=== PATIENT | male | born 1980 | race Caucasian/White ===

== ENCOUNTER 2020-05-08 08:54 | Emergency (ER) | payer BC, SELFPAY ==
--- NOTE | ~2020-05-08 | XR_ITS ---
EXAMINATION: XR chest 2V EXAM DATE: 05/08/2020 09:40 INDICATION: Sharp frontal chest pain. TECHNIQUE: Frontal and lateral projections of the chest obtained and reviewed. There is no prior heavenly dy for comparison. FINDINGS: The lungs are clear. There are no pleural effusions. The cardiomediastinal silhouette is within normal limits. There is no pneumothorax suspected. The bones and soft tissues are unremarkab le. IMPRESSION: Normal chest x-ray exam. Reviewed, dictated and finalized at location A. ESSIONAL MODEL IMPRESSION: Normal chest x-ray exam.
[2020-05-08 08:58] VITALS: BP 183/106; PULSE 106; RESP 18; TEMP 36.7; O2SAT 100
--- NOTE | 2020-05-08 09:02 | ECG_ITS ---
Measurements Intervals [place] Rate: 107 P: 69 [place]: 145 QRS: -2 QRSD: 102 T: 65 QT: 331 QTc: 443 Interpretive Statements SINUS TACHYCARDIA ABNORMAL ECG Electronically Signed On 05-08-2020 9:53:07 SUPERVISOR INTELLIGENCE ANALYST by Isaac Merritt D.O.
[2020-05-08 09:28] LABS: Basophils Absolute Auto 0.1 K/mm3 (0.0-0.1); Basophils Percent Auto 0.8 % (0.2-1.2); Eosinophils Absolute Auto 0.2 K/mm3 (0-0.3); Eosinophils Percent Auto 3.1 % (0-4.4); Hematocrit 39.7 % (42.0-52.0); Hemoglobin 13.8 g/dL (14.0-18.0); Immature Granulocyte Absolute 0.06 K/mm3 (0.00-0.031); Immature Granulocyte Percent A 0.8 % (0-0.5); Lymphocytes Absolute Auto 3.25 K/mm3 (0.9-3.2); Lymphocytes Percent Auto 43.1 % (18.3-44.2); Mean Corpuscular HGB Conc 34.8 g/dl (32-36); Mean Corpuscular Hemoglobin 32.6 pg (26-34); Mean Corpuscular Volume 93.9 fl (80-100); Mean Platelet Volume 9.7 fl (7.4-10.4); Monocytes Absolute Auto 0.7 K/mm3 (0.1-0.6); Monocytes Percent Auto 9.4 % (2.6-8.5); Neutrophils Absolute Auto 3.2 K/mm3 (1.3-6.7); Neutrophils Percent Auto 42.8 % (45.5-73.1); Platelet Count Result 311 k/mm3 (150-375); Red Blood Count 4.23 M/mm3 (4.6-6.20); Red Cell Distribution Width 12.7 % (11.5-14.5); White Blood Count 7.5 K/mm3 (4.5-10.0)
[2020-05-08 09:46] LABS: Prothrombin Time 13.5 Seconds (11.1-14.7)
[2020-05-08 09:47] LABS: Partial Thromboplastin Time 30.7 SECONDS (22.3-36.8)
[2020-05-08] MEDS: LIDOCAINE HCL 2% VISC SOLN 15 ML UDC 20 ML PO (09:50)
[2020-05-08] MEDS: PANTOPRAZOLE SODIUM IV 40 MG VIAL IV PUSH (09:51)
[2020-05-08] MEDS: MAG HYDROX/AL HYDROX/SIMETH 30 ML UDC PO (09:51)
[2020-05-08 10:03] LABS: Anion Gap 8 mmol/L (8-16); Blood Urea Nitrogen 17 mg/dL (9-20); Calcium 9.3 mg/dL (8.4-10.2); Carbon Dioxide 26 mmol/L (22-30); Chloride 105 mmol/L (98-107); Estimated CRCL calculation 105 ml/min; Estimated Glomerular Filt Rate > 60; Glucose 127 mg/dL (75-110); Potassium 4.1 mmol/L (3.4-5.0); Sodium 139 mmol/L (137-145)
[2020-05-08 10:07] LABS: Alanine Aminotransferase 29 U/L (4-50); Albumin Level 4.6 g/dL (3.5-5.1); Alkaline Phosphatase 80 U/L (38-126); Aspartate Amino Transferase 42 U/L (17-59); Bilirubin,Total 0.5 mg/dL (0.2-1.3); Lipase 91 U/L (23-300)
[2020-05-08 10:14] LABS: Troponin I < 0.012 ng/mL (0.000-0.034)
[2020-05-08 10:38] VITALS: BP 160/104; PULSE 91; RESP 15; TEMP 36.8; O2SAT 99
--- NOTE | 2020-05-08 10:54 | ED.CHESTPAIN ---
HPI - Chest Pain General Chief Complaint: Chest Pain Stated Complaint: CHEST PAIN Time Seen by Provider: 05/08/20 09:09 Source: patient Mode of arrival: ambulatory Limitations: no limitations History of Present Illness HPI narrative: Patient is a 39-year-old male who presents to emergency department for evaluation of midsternal chest pain that began at 8:00 this morning patient notes pressure of the chest did have 2 sharp stabbing pains to the right chest some mild left shoulder pain as well which was short-lived and has since had intermittent pressure in the mid chest patient notes that he did not take his omeprazole last night did eat pizza and this morning again had hashbrowns and Pepsi as a potential cause. Patient denies history of cardiac disease patient denies any other abdominal pain patient notes he did have a loose stool today as well. . Denies URI symptoms Related Data Home Medications Medication Instructions Recorded Confirmed omeprazole 40 mg PO DAILY 05/08/20 Allergies Allergy/AdvReac Type Severity Reaction Status Date / Time No Known Allergies Allergy Verified 05/08/20 09:01 Review of Systems Review of Systems: All systems reviewed & are unremarkable except as noted in HPI and below PMFSH Past Medical History Medical History (Updated 05/08/20 @ 12:28 by Naman Panchal PA-C) GERD (gastroesophageal reflux disease) Social History Social History (Updated 05/08/20 @ 10:56 by Naman Panchal PA-C) Smoking status: Never smoker Smokeless tobacco user: chewing tobacco Exam Narrative: Exam Narrative: GENERAL: Well-appearing, well-nourished, and in no acute distress. HEAD: Normocephalic, atraumatic. EYES: PERRLA and EOMI. ENT: Nares clear, no rhinorrhea or epistaxis. Mucous membranes moist. CHEST: Clear to auscultation. No respiratory distress. No wheezes rales or rhonchi HEART: Regular rate and rhythm. No murmur heard. ABDOMINAL: Nontender no rebound or guarding, soft EXTREMITIES: Normal range of motion. No edema. SKIN: Warm, dry, no rash. NEURO: No focal deficits. Alert and oriented x3. PSYCH: Normal mood and affect. Course Course Emergency Course: Patient in the room in no distress noted resolution of pain with GI cocktail and improvement with Protonix. Patient resting comfortably will continue to watch his blood pressures for trending. Vital Signs Vital signs: Vital Signs Temperature 98.1 F 05/08/20 08:58 Pulse Rate 106 H 05/08/20 08:58 Respiratory Rate 18 05/08/20 08:58 Blood Pressure 183/106 H 05/08/20 08:58 Pulse Oximetry 100 05/08/20 08:58 Temperature 98.2 F 05/08/20 10:38 Pulse Rate 91 05/08/20 10:38 Respiratory Rate 15 05/08/20 10:38 Blood Pressure 160/104 H 05/08/20 10:38 Pulse Oximetry 99 05/08/20 10:38 MDM - Chest Pain MDM Narrative Medical decision making narrative: Patients EKGs and labs are without significant high risk changes. Cardiac risk factors were reviewed. Patient is felt likely to be low risk for ACS and reasonable for further risk stratification testing as an outpatient. Pain was not sudden or maximal in onset without tearing or ripping. quality. No other signs or symptoms to suggest aortic dissection. A low-risk Wells criteria is noted. PE is felt to be unlikely. No pneumonia or URI symptoms were seen on evaluation today. Patient is felt to b reasonable for continued evaluation as an outpatient. Lab Data Result diagrams: 05/08/20 09:05 05/08/20 09:05 Labs: Lab Results 05/08/20 05/08/20 05/08/20 Range/Units 09:04 09:05 09:05 WBC 7.5 (4.5-10.0) K/mm3 RBC 4.23 L (4.6-6.20) M/mm3 Hgb 13.8 L (14.0-18.0) g/dL Hct 39.7 L (42.0-52.0) % MCV 93.9 (80-100) fl MCH 32.6 (26-34) pg MCHC 34.8 (32-36) g/dl RDW 12.7 (11.5-14.5) % Plt Count 311 (150-375) k/mm3 MPV 9.7 (7.4-10.4) fl Immature Gran % (Auto) 0.8 H (0-0.5) % Neut % (Auto) 42.8
[2020-05-08 12:20] LABS: Troponin I < 0.012 ng/mL (0.000-0.034)
[2020-05-08 12:34] VITALS: BP 165/95; PULSE 91; RESP 16; TEMP 36.7; O2SAT 100
== END 2020-05-08 12:35 | disposition home or self-care (01) ==
PROVIDERS: Emergency Medicine Emergency Medical Services; Emergency Provider Emergency Medicine; PCP Internal Medicine
DX: R07.2 Precordial pain (principal); K21.9 Gastro-esophageal reflux disease without esophagitis; R00.0 Tachycardia, unspecified
CPT/HCPCS: 36415; 71046; 80048; 80076; 83690; 84484; 85025; 85610; 85730; 93005; 96374; 99284; A9270; C9113

== ENCOUNTER 2023-07-24 14:45 | Emergency (ER) | payer OTHER, SELFPAY ==
--- NOTE | ~2023-07-24 | XR_ITS ---
EXAMINATION: XR foot RT min 3V DATE: 07/24/2023 15:21 INDICATION: Right foot injury and pain. TECHNIQUE: 4 views of right foot were obtained. COMPARISON: None. FINDINGS: Bone alignment is normal. No fracture. There is mild osteoarthritis of talonavicular joint. There is an enthesophyte at posterior aspect of calcaneal tuberosity. IMPRESSION: 1. Mild osteoarthritis of talonavicular joint. Reviewed, dictated and finalized at location A.
[2023-07-24 15:00] VITALS: BP 164/91; PULSE 121; RESP 18; TEMP 36.2; O2SAT 99
--- NOTE | 2023-07-24 15:07 | ED.GENADULT ---
HPI - General Adult General Chief complaint: Extremity Problem,Nontraumatic Stated complaint: rt foot pain Source: patient, RN notes reviewed and old records reviewed Mode of arrival: ambulatory Limitations: no limitations History of Present Illness HPI narrative: 42-year-old male patient presents to [facility] with complaints right foot and ankle pain that started 2 years ago. Per patient he has pain in the bottom of his heel and along his Achilles tendon after running. Patient states does not hurt to run but patient start after running. Patient states is it [employer] and saw [employer] doctor and was told needed to be evaluated. Patient denies known injury. Patient has not tried anything for pain other than rest. Patient states is here wanting medical release for physical portion testing. Related Data Allergies Allergy/AdvReac Type Severity Reaction Status Date / Time No Known Allergies Allergy Verified 07/24/23 15:00 Review of Systems Constitutional: Constitutional: Reports no additional constitutional complaints, Denies body ache(s), Denies chills, Denies fatigue, Denies fever(s) and Denies headache(s) Eyes: Eyes: Reports no additional eye complaints and Denies blurry vision ENT: Reports system reviewed and no additional complaints, except as documented, Denies vertigo, Denies dizziness, Denies ear discharge, Denies otalgia, Denies facial pain, Denies headache(s), Denies nasal congestion, Denies nasal discharge, Denies sinus pain, Denies sinus pressure and Denies sore throat Cardiovascular: Cardiovascular: Reports no additional cardiovascular complaints, Denies chest pain, Denies chest pain at rest, Denies rapid heart rate and Denies dyspnea Respiratory: Respiratory: Reports no additional respiratory complaints, Denies chest congestion, Denies cough, Denies pain on inspiration, Denies pain with cough and Denies dyspnea Gastrointestinal: Gastrointestinal: Denies abdominal pain, Denies diarrhea, Denies nausea and Denies vomiting Musculoskeletal: Musculoskeletal: Reports as per HPI Comments: right heel pain and pain on posterior ankle Integumentary/Breasts: Skin/Breast: Denies rash Neurologic: Reports system reviewed and no additional complaints, except as documented, Denies vertigo, Denies dizziness and Denies headache(s) Endocrine: Endocrine: Denies fatigue [facility] Past Medical History Medical History (Updated 07/24/23 @ 15:32 by Reta Whittaker APRN) GERD (gastroesophageal reflux disease) Social History Social History (Updated 05/08/20 @ 10:56 by Naman Pacnhal, PALisethC) Smoking status: Never smoker Smokeless tobacco user: chewing tobacco Comments At the time of my signature, I reviewed and agree with the nursing past medical, surgical, social, and family history. There is no relevant family history pertinent to the patient complaint. Exam Const: General: cooperative, healthy appearing, no acute distress and well nourished Nutritional Appearance: well nourished Orientation/consciousness: patient oriented x3 Limitations: no limitations HENMT: Head: normal to inspection and normocephalic Ears: external ears normal Face/Nose/Sinus: normal facial exam Face and sinus: normal facial exam Mouth: Yes Normal oral and palatal mucosa present, Yes oropharynx normal and Yes moist mucous membranes Eyes: General: appearance normal, both eyes and all related structures Sclera: sclerae normal Pupils: Equal, round and reactive pupils present Resp: Effort & Inspection: normal respiratory effort, able to speak in complete sentences, no audible wheezes, no cough, no respiratory distress and no retractions Skin: General skin exam: normal color and no rashes or lesions noted Neuro: General: patient oriented x3 Cranial nerves: Yes Equal, round and reactive pupils present Extrem: Right lower extremity: normal to inspection, full ROM, normal capillary refill, ankle Details: normal to insp
== END 2023-07-24 15:35 | disposition home or self-care (01) ==
PROVIDERS: Emergency Provider Registered Nurse
DX: M19.071 Primary osteoarthritis, right ankle and foot (principal); M77.31 Calcaneal spur, right foot; K21.9 Gastro-esophageal reflux disease without esophagitis; F17.220 Nicotine dependence, chewing tobacco, uncomplicated
CPT/HCPCS: 73630; 99213; G0463